=== PATIENT | female | born 1940 ===

== ENCOUNTER 2023-03-25 14:25 | Outpatient (REF) | payer MEDICARE, SELFPAY ==
--- NOTE | ~2023-03-25 | MR_ITS ---
EXAMINATION: MR BRAIN WITHOUT CONTRAST CLINICAL INFORMATION: Stroke, vascular dementia. COMPARISON: None available. TECHNIQUE: MRI of the brain was obtained using routine sequences without contrast. FINDINGS: No restricted diffusion to suggest acute infarction. Encephalomalacia/gliosis with hemosiderin staining in the left occipital lobe related to prior infarction. Multiple additional small areas of lacunar infarction are seen in the bilateral pereira radiata/centrum semiovale. Generalized cerebral volume loss with associated ventricular and sulcal prominence. There is asymmetric volume loss in the bilateral temporal lobes. Ventricular and subcortical T2/flair hyperintense foci are nonspecific but likely represent chronic microvascular ischemic change. Intracranial flow voids are preserved. Scattered paranasal sinus polypoid mucosal thickening. The mastoid air cells are well-aerated. Bilateral intraocular lens replacements. Diffusely heterogeneous calvarial marrow signal without focal expansile/destructive osseous lesion. MR/MR head/brain wo con IMPRESSION: Chronic encephalomalacia/gliosis in the left occipital lobe related to prior infarction. Additional scattered small chronic lacunar infarctions are noted. No restricted diffusion to suggest acute infarction. Generalized cerebral volume loss with asymmetric volume loss in the temporal lobes. Heterogeneous calvarial marrow signal is indeterminate and may represent red marrow. Correlation with laboratory values is suggested to exclude an underlying marrow replacing process.
== END 2023-03-25 14:26 | disposition home or self-care (01) ==
LOC: HO.MRI 14:25
PROVIDERS: PCP Family Medicine; Visit Provider Psychiatry & Neurology Neurology
DX: I63.9 Cerebral infarction, unspecified (principal); F01.50 Vascular dementia, unspecified severity, without behavioral disturbance, psychotic disturbance, mood disturbance, and anxiety
CPT/HCPCS: 70551

== ENCOUNTER 2023-06-18 16:00 | Outpatient (REF) | payer MEDICARE, SELFPAY ==
--- NOTE | ~2023-06-18 | MR_ITS ---
EXAMINATION: MR CERVICAL SPINE WITHOUT CONTRAST CLINICAL INFORMATION: Myelopathy COMPARISON: None TECHNIQUE: MRI of the cervical spine was obtained using routine sequences without contrast. No axial T2-weighted sequence was acquired. FINDINGS: Please note that no axial T2-weighted sequence was performed, limiting assessment for cord signal abnormality and accurate grading of the neural foramina. The craniocervical junction is intact. Mild retrodental ligamentous thickening/pannus. The cervical lordosis is preserved. Slight anterolisthesis at C2-C3, C5-C6, C7-T1, T1-T2, and T2-T3. Vertebral body heights are normal without acute compression fracture. No suspicious osseous lesion. Diffuse disc desiccation with severe posterior C4-C5 and otherwise mild to moderate multilevel disc height loss.. C4-C5 ventral disc osteophyte and C5 bulky prevertebral ossification eccentric to the left indenting along the posterior wall of the left hypopharynx. There are multilevel degenerative changes with level by level detail as follows: C2-C3: Mild disc osteophyte complex with left greater than right uncovertebral joint hypertrophy, severe right and milder left facet arthrosis. No spinal canal stenosis. Moderate left and mild to moderate right neural foraminal stenosis. C3-C4: Disc osteophyte complex with left central disc protrusion, bilateral uncovertebral joint hypertrophy, severe right and milder left facet arthrosis with ligamentum flavum thickening. No spinal canal stenosis. Severe right and moderate to severe left neural foraminal stenosis. C4-C5: Disc osteophyte complex with inferiorly migrated central disc extrusion, bilateral uncovertebral joint hypertrophy, severe left and milder right facet arthrosis with ligamentum flavum thickening. Mild to moderate spinal canal stenosis with slight indentation along the ventral cord and severe bilateral neural foraminal stenosis. C5-C6: Disc osteophyte complex with left central disc protrusion, bilateral uncovertebral joint hypertrophy, and severe bilateral facet arthrosis with ligamentum flavum thickening. Moderate spinal canal stenosis with mass effect along the left ventral and dorsolateral cord, the latter from asymmetric suspected ligamentum flavum. Severe bilateral neural foraminal stenosis. C6-C7: Disc osteophyte complex, bilateral uncovertebral joint hypertrophy, and bilateral facet arthrosis. No spinal canal stenosis. Severe bilateral neural foraminal stenosis. C7-T1: Slight posterior disc uncovering, uncovertebral spurring, and severe left greater than right facet arthrosis. No spinal canal stenosis. Mild bilateral neural foraminal stenosis. Query cord signal abnormality at C4 versus artifact, poorly assessed due to motion and lack of axial T2-weighted sequence. No epidural fluid collection, mass, or hematoma. No significant abnormalities of the paraspinal musculature. The visualized intracranial structures are normal. Partially imaged mild to moderate paranasal sinus mucosal disease. MR/MR cervical spine wo con IMPRESSION: Please note that no axial T2-weighted sequence was performed, limiting assessment for cord signal abnormality and accurate grading of the neural foramina. 1. Multilevel cervical spondylosis with moderate spinal canal stenosis at C5-C6 and mild to moderate spinal canal stenosis at C4-C5. There is mass effect along the left ventral and dorsolateral cord at C5-C6 from a left central disc protrusion and asymmetric suspected ligamentum flavum, respectively. Query cord signal abnormality at C4 versus artifact, poorly assessed due to motion and lack of axial T2-weighted sequence. 2. Multilevel moderate to severe neural foraminal stenosis as described. 3. C4-C5 ventral disc osteophyte and C5 prevertebral ossification eccentric to the left causes mass effect along the posterior left hypopharyngeal wall which can be correlated clinically for symptoms of dysphagia.
== END 2023-06-18 16:01 | disposition home or self-care (01) ==
LOC: HO.MRI 16:00
PROVIDERS: PCP Family Medicine; Visit Provider Psychiatry & Neurology Neurology
DX: G95.9 Disease of spinal cord, unspecified (principal)
CPT/HCPCS: 72141